=== PATIENT | male | born 1965 | race Caucasian/White ===

== ENCOUNTER 2022-06-21 13:08 | Emergency (ER) | payer OTHER ==
[~2022-06-21 13:08] MED LIST: D5NS ONE
[2022-06-21 13:09] VITALS: BP 128/87
--- NOTE | 2022-06-21 13:30 | NUR ---
MAR UNABLE TO GET AN ANSWER ON PHONE.
--- NOTE | 2022-06-21 13:37 | PCM.EKG ---
[facility] Test Date: 2022-06-21 Test Time: 13:28:22 Pat Name: CAMRYN MORA Department: Room: Gender: M [employer] Intern[employer]: EMMIE : 1965 Requested By: BENITO TAYLOR Order Number: [id number] Reading MD: Measurements Intervals [place] Rate: 113 P: 34 SD: 147 QRS: 64 QRSD: 111 T: 65 QT: 368 QTc: 505 Interpretive Statements Sinus tachycardia Paired ventricular premature complexes Low voltage, extremity and precordial leads Borderline prolonged QT interval No previous ECG available for comparison Please click the below link to view image of tracing.
[2022-06-21 13:45] LABS: BILIRUBIN,URINE 1+ (NEGATIVE)
--- NOTE | 2022-06-21 14:00 | NUR ---
MAR UNABLE TO GET ANSWER FROM [facility] ON PHONE. 2ND ATTEMPT.
--- NOTE | 2022-06-21 14:09 | DIREP ---
PROCEDURE:CT HEAD OR BRAIN W/O CONTRAST COMPARISON:None. INDICATIONS:weak TECHNIQUE:CT images were created without intravenous contrast. FINDINGS: VENTRICLES:The ventricles are normal in size and configuration. CEREBRUM:Normal cerebral morphology with appropriate gonzalez white matter differentiation. CEREBELLUM:Negative. BRAINSTEM:Negative. BASAL CISTERNS:Negative. HEMORRHAGE (Vol L*W*H*.52):No MASS LESION:No ACUTE INFARCT:No SKULL:Normal. SINUSES:Minimal bilateral maxillary sinus mucoperiosteal thickening. OTHER:None CONCLUSION:No acute intracranial process. Dictated by: Armando Rodgers M.D. on 06/21/2022 at 02:07 PM
--- NOTE | 2022-06-21 14:15 | NUR ---
MRA BUTTS RN AT BEDSIDE TO ASSESS PT.
[2022-06-21 14:29] LABS: BASOPHIL % 0.2 % (0.0-0.2); EOSINOPHIL % 0.3 % (0.0-5.0); LYMPHOCYTES # 1.83 10^3/uL1 (1.0-4.8); LYMPHOCYTES % 30.7 % (24.0-44.0); MEAN CORP HGB 34.1 pg (26-34); MONOCYTES # 0.5 10^3/uL (0.3-0.8); MONOCYTES % 7.6 % (5.0-12.0); NEUTROPHIL # 3.6 10^3/uL (1.8-7.7); NEUTROPHILS % 60.7 % (41.0-85.0); PLATELET COUNT 284 10^3/uL (150-400); RED CELL DISTRIBUTION WIDTH 13.6 % (11.5-14.5)
--- NOTE | 2022-06-21 14:30 | NUR ---
PSYCH NURSE EVAL THIS RN AT BEDSIDE TO EVALUATE PATIENT. WHEN ASKED WHAT BROUGHT THE PATIENT TO THE ER, PATIENT STATES, "I DON'T WANT TO LIVE ANY LONGER; I'M SICK ALL THE TIME. I JUST WANT TO ." PATIENT STATES HE HAS BEEN DEALING WITH DEPRESSION AND SUICIDAL THOUGHTS FOR THE LAST YEAR AFTER LOSING 2 VERY CLOSE FRIENDS. PATIENT ALSO STATES THAT HE IS AN ALCOHOLIC. STATES HE DRINKS AT LEAST A LITER OF VODKA A DAY FOR THE LAST 30 YEARS. PATIENT STATES THAT HE HAS BEEN TO REHAB AT LEAST 5 TIMES BUT LIKES TO DRINK AND SOON HE HIS RELEASE FROM REHAB, BEGINS DRINKING IMMEDIATELY. PATIENT WOULD VOLUNTARILY COME TO PSYCH UNIT FOR HELP.
[2022-06-21 14:41] LABS: CARBON DIOXIDE 21.1 mmol/L (20.0-32); GLUCOSE 109 mg/dL (70-110)
--- NOTE | 2022-06-21 14:59 | NUR ---
ALCOHOL LEVEL LAB REPORTS PATIENT'S ALCOHOL LEVEL OF 321, NOTIFIED EDP DR TAYLOR
--- NOTE | 2022-06-21 15:14 | NUR ---
BERTHA MARTINEZ NOTIFIED BERTHA MARTINEZ OF PATIENT. PATIENT DOES NOT MEET MEDICAL CLEARANCE AT THIS TIME.
--- NOTE | 2022-06-21 15:40 | ER.PDOC ---
General Chief Complaint: Medical Clearance Stated Complaint: SI Time seen by MD: 15:00 Source: patient Exam Limitations: no limitations History of Present Illness Initial Comments Suicidal ideation, alcohol abuse, also a right hand weakness of 2 days duration Timing/Duration: yesterday Intent: Suicide Severity: moderate Related to: Sigificant Other Associated Symptoms: Depressed Prior symptoms/Treatment: Similar symptoms previous Allergies: Coded Allergies: No Known Allergies (Unverified , 06/21/22) Past Medical History Medical History: GERD, other Surgical History: appendectomy Social History Alcohol Use: heavy Drug Use: none Reviewed Nursing Reviewed: Vital Signs, Abn. Noted Review of Systems EENTM: no symptoms reported Respiratory: no symptoms reported Cardiovascular: no symptoms reported Gastrointestinal: no symptoms reported Genitourinary: no symptoms reported Musculoskeletal: no symptoms reported, other Skin: no symptoms reported Psychiatric/Neurological: see HPI, depressed, numbness, paresthesia, pre- existing deficit, weakness All Other Systems: Reviewed and Negative Physical Exam General Appearance: No acute distress, Alert EENT: No nystagmus, PERRLA, EOM's intact, NML ENT inspection, Pharynx nml, NML gag reflex Neck: Non-Tender, Full Range of Motion, Supple, Normal Inspection Respiratory: chest non-tender, lungs clear, normal breath sounds, no respiratory distress, no accessory muscle use Cardiovascular: Normal Peripheral Pulses, Regular Rate, Rhythm, No Edema, No Gallop, No JVD, No Murmur Gastrointestinal: Normal Bowel Sounds, No Organomegaly, No Pulsatile Mass, Non Tender, Soft Extremities: Non-Tender, Normal Range of Motion, No Evidence of Trauma, No Edema Neurological/Psychiatric: Calm, 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 Tested, Other Appearance/Memory/Insight: Impaired Insight Behavior/Eye Contact/Speech: Cooperative, Good Eye Contact, Normal Speech Thoughts/Hallucinations: Normal Thought Pattern Skin: Normal Color, Warm/Dry Comments RADIAL N PALSY LUE Results/Orders Results/Orders Orders - PILY LEE MD 0.9 % Sodium Chloride (Ns 1000ml) (06/21/22 19:03) 0.9 % Sodium Chloride (Ns 1000ml) (06/21/22 19:34) Us Gallbladder (06/21/22 20:16) Mag Hydrox/Aluminum Hyd/Simeth (Mylanta) (06/21/22 21:49) Lidocaine Hcl (Lidocaine Hcl Viscous) (06/21/22 21:49) Mag Hydrox/Aluminum Hyd/Simeth (Mylanta) (06/21/22 22:14) Lidocaine Hcl (Lidocaine Hcl Viscous) (06/21/22 22:18) Vital Signs Date Time Temp Pulse Resp B/P (MAP) Pulse Ox O2 Delivery O2 Flow Rate FiO2 06/21/22 13:09 98.7 110 18 128/87 (101) 98 Room Air* 0 21 06/21/22 13:09 98.8 110 18 98 06/21/22 13:09 98.7 110 18 Administered Medications Medications (Trade) Dose Ordered Sig/Daniel Route PRN Reason Start Time Stop Time Status Last Admin Dose Admin Dextrose/Sodium Chloride 1,000 ml @ 0 mls/hr Q0M ONCE IV 06/21/22 16:00 06/21/22 16:01 DC 06/21/22 16:09 1,200 MLS/HR Lidocaine HCl (Lidocaine HCl Viscous) 10 ml STAT STAT MM 06/21/22 21:49 06/21/22 21:50 DC 06/21/22 22:20 10 ML Sodium Chloride 1,000 ml @ 1,200 mls/hr Q50M STAT IV 06/21/22 19:03 06/21/22 19:52 DC 06/21/22 19:05 1,200 MLS/HR Sodium Chloride 1,000 ml @ 1,200 mls/hr Q50M STAT IV 06/21/22 19:34 06/21/22 20:23 DC 06/21/22 20:08 1,200 MLS/HR Laboratory Tests Test 06/21/22 13:24 06/21/22 13:39 06/21/22 13:54 06/21/22 14:35 Serum Alcohol 321 mg/dL (0-50) H Urine Collection Type RANDOM Urine Color MIKE Urine Appearance CLEAR Urine Bilirubin 1+ (NEGATIVE) H Urine Ketones NEGATIVE (NEGATIVE) Urine Specific [place] 1.020 (1.005-1.030) Urine pH 6.0 (4.5-8.0) Urine Protein 1+ (NEGATIVE) H Urine Urobilinogen 2.0 E.U./dL (0.2) Urine Nitrate NEGATIVE (NEGATIVE) Urine Leukocyte Esterase NEGATIVE (NEGATIVE) Urine Glucose (Auto)(UA) NEGATIVE (NEGATIVE) Urine Blood TRACE-INTACT (NEGATIVE) H Urine RBC 0-2 RBC/HPF (NONE SEEN) Urine WBC 0-2 WBC/HPF (0-2) Urine Squamous Epithelial Cells NONE SEEN (<=FEW) Urine Bacteria FEW (NONE SEEN) H Urine Hyaline Casts (NONE SEEN) Urine Opiates Screen NEGATIVE (c/o300ng/mL) Urine Methadone Screen NEGATIVE (c/o300ng/mL) Urine Barbiturates Screen NEGATIVE (c/o200ng/mL) Urine Phencyclidine Screen NEGATIVE (c/o 25ng/mL) Ur Amphetamine/Methamphetamine NEGATIVE (vb3082vs/mL) Urine MDMA Screen (Ecstasy) NEGATIVE (c/o300ng/mL) Urine Benzodiazepines Screen PRESUMPTIVE POSITIVE Urine Cocaine Metabolite Screen NEGATIVE (c/o300ng/mL) Ur Tetrahydrocannabinol (THC) Scrn NEGATIVE (c/o 50ng/mL) White Blood Count 6.0 10^3/uL (4.5-11.0) Red Blood Count 4.22 10^6/uL (4.50-5.90) L Hemoglobin 14.4 g/dL (13.9-16.3) Hematocrit 40.9 % (37.0-53.0) Mean Corpuscular Volume 96.9 fL (78-100) Mean Corpuscular Hemoglobin 34.1 pg (26-34) H Mean Corpuscular Hemoglobin Concent 35.2 g/dL (33-36.5) Red Cell Distribution Width 13.6 % (11.5-14.5) Platelet Count 284 10^3/uL (150-400) Mean Platelet Volume 10.5 fL (7.8-11.0) Neutrophils (%) (Auto) 60.7 % (41.0-85.0) Lymphocytes (%) (Auto) 30.7 % (24.0-44.0) Monocytes (%) (Auto) 7.6 % (5.0-12.0) Neutrophils # (Auto) 3.6 10^3/uL (1.8-7.7) Lymphocytes # (Auto) 1.83 10^3/uL1 (1.0-4.8) Monocytes # (Auto) 0.5 10^3/uL (0.3-0.8) Absolute Immature Granulocyte (auto 0.03 10^3 u/L (0-2) Absolute Eosinophils (auto) 0.0 10^3/uL (0.0-0.2) Immature Granulocytes % 0.50 % (0.00-0.50) Eosinophils % 0.3 % (0.0-5.0) Basophils % 0.2 % (0.0-0.2) Basophils # 0.0 10^3/uL (0.0-0.1) Sodium Level 131 mmol/L (132-145) L Potassium Level 4.3 mmol/L (3.6-5.2) Chloride Level 97.0 mmol/L (96-109) Carbon Dioxide Level 21.1 mmol/L (20.0-32) Anion Gap 17.2 Blood Urea Nitrogen 18 mg/dL (7-18) Creatinine 0.72 mg/dL (0.59-1.40) Estimated GFR () 135.7 (>/=60) Est GFR (CKD-EPI)(Non-Afr [place]) 112.1 (>/=60) BUN/Creatinine Ratio 25.0 Glucose Level 109 mg/dL (70-110) Calcium Level 8.1 mg/dL (8.4-10.5) L Total Bilirubin 5.3 mg/dL (0.2-1.0) H Aspartate Amino Transferase (AST) 302 U/L (0-35) H Alanine Aminotransferase (ALT) 151 U/L (12-78) H Alkaline Phosphatase 683 U/L (50-136) H Total Creatine Kinase 134 U/L (39-308) Total Protein 7.3 g/dL (6.4-8.2) Albumin 3.0 g/dL (3.4-5.0) L Globulin 4.3 Albumin/Globulin Ratio 0.697 Salicylates Level < 2.2 mg/dL (2.8-20.0) L Acetaminophen Level < 2 ug/mL (10-30) L SARS-CoV-2 Antigen (Rapid) NEGATIVE (NEGATIVE) Test 06/21/22 19:09 Serum Alcohol 233 mg/dL (0-50) H Progress Progress Assumed care from Dr. Chase at 7pm US gallbladder: Cholelithiasis with no evidence of biliary ductal dilatation. Gallbladder tenderness and wall thickness raises possibility of cholecystitis. Recommend close correlation with clinical laboratory findings. 2. Hepatic steatosis. Patient not able to be [facility] because of elevation of liver enzymes, total bilirubin and stones in the gallbladder. I spoke with Dr. Brock the general surgeon who told me that based on history of alcohol abuse with intoxication and also depression with suicidal ideation, patient needs to [facility] which is a higher level of care since the facility can take care above his psychiatric illness and medical problem. WBC is normal and no fever making cholecystitis less likely. ER DEPART Departure Time of Disposition: 17:00 Disposition: 02 SHORT TERM [facility]OS[facility] Impression: Primary Impression: Cholelithiases Additional Impressions: Elevated liver enzymes Hyperbilirubinemia Suicidal ideation Alcohol intoxication Condition: Stable Referrals: PCP,UNKNOWN (PCP) PRIMARY CARE PROVIDER Comments Transfer to [facility] ED for Dr. Brock Duration or Time Spent with Pa: 60 min Return to Work/School Can a patient return to work?: No Can a patient return to school: No Problem Qualifiers Primary Impression: Cholelithiases Cholelithiasis location: gallbladder Cholecystitis presence: without cholecystitis Biliary obstruction: without biliary obstruction Qualified Codes: K80.20 - Calculus of gallbladder without cholecystitis without obstruction Additional Impressions: Alcohol intoxication Complication of substance-induced condition: with unspecified complication Qualified Codes: F10.929 - Alcohol use, unspecified with intoxication, unspecified CLAUDIABENITO AG MD Jun 21, 2022 15:40 PILY LEE MD Jun 21, 2022 23:07
[2022-06-21] MEDS ORDERED: D5NS IV ONE (16:00)
[2022-06-21] MEDS ORDERED: D5NS 1,000 ML IV ONE ×2 (16:00)
--- NOTE | 2022-06-21 16:22 | ER.PDOC ---
General Chief Complaint: Medical Clearance Stated Complaint: SI Time seen by MD: 15:33 Source: patient Exam Limitations: no limitations History of Present Illness Timing/Duration: just prior to arrival Severity: mild Related to: Parent Associated Symptoms: Depressed Prior symptoms/Treatment: Similar symptoms previous Allergies: Coded Allergies: No Known Allergies (Unverified , 06/21/22) Past Medical History Medical History: GERD, other Surgical History: appendectomy Social History Alcohol Use: heavy Drug Use: none Reviewed Nursing Reviewed: Vital Signs, Abn. 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 as Tested, Other Appearance/Memory/Insight: Appropriate Appearance, Appropriate Insight, Neat, No Memory Impairment Behavior/Eye Contact/Speech: Cooperative, Good Eye Contact, Normal Speech Thoughts/Hallucinations: Normal Thought Pattern, No Apparent Hallucination Skin: Normal Color, Warm/Dry Comments RADIAL N PALSY LUE Results/Orders Results/Orders Orders - BENITO TAYLOR MD Cbc With Auto Diff (06/21/22 13:32) Comprehensive Metabolic Panel (06/21/22 13:32) Creatine Kinase (06/21/22 13:32) Urinalysis (06/21/22 13:32) Salicylate(Ml) (06/21/22 13:32) Acetaminophen(Ml) (06/21/22 13:32) Alcohol(Ml) (06/21/22 13:32) Ekg-Routine (06/21/22 13:32) Drug Scrn Med W Confirmation (06/21/22 13:32) Ct Head Wo Contrast (06/21/22 13:32) Covid19 Antigen Shelley Nadeen (06/21/22 14:02) Urine Culture (06/21/22 13:28) Dextrose 5 % And 0.9 % Nacl (D5ns) (06/21/22 16:00) Dextrose 5 % And 0.9 % Nacl (D5ns) (06/21/22 16:00) Dextrose 5 % And 0.9 % Nacl (D5ns) (06/21/22 16:00) Alcohol(Ml) (06/21/22 19:00) 0.9 % Sodium Chloride (Ns 1000ml) (06/21/22 19:03) Vital Signs Date Time Temp Pulse Resp B/P (MAP) Pulse Ox O2 Delivery O2 Flow Rate FiO2 06/21/22 13:09 98.7 110 18 128/87 (101) 98 Room Air* 0 21 06/21/22 13:09 98.8 110 18 98 06/21/22 13:09 98.7 110 18 Administered Medications Medications (Trade) Dose Ordered Sig/Daniel Route PRN Reason Start Time Stop Time Status Last Admin Dose Admin Dextrose/Sodium Chloride 1,000 ml @ 0 mls/hr Q0M ONCE IV 06/21/22 16:00 06/21/22 16:01 DC 06/21/22 16:09 1,200 MLS/HR Sodium Chloride 1,000 ml @ 1,200 mls/hr Q50M STAT IV 06/21/22 19:03 06/21/22 19:52 06/21/22 19:05 1,200 MLS/HR Laboratory Tests Test 06/21/22 13:24 06/21/22 13:39 06/21/22 13:54 06/21/22 14:35 Serum Alcohol 321 mg/dL (0-50) H Urine Collection Type RANDOM Urine Color MIKE Urine Appearance CLEAR Urine Bilirubin 1+ (NEGATIVE) H Urine Ketones NEGATIVE (NEGATIVE) Urine Specific [place] 1.020 (1.005-1.030) Urine pH 6.0 (4.5-8.0) Urine Protein 1+ (NEGATIVE) H Urine Urobilinogen 2.0 E.U./dL (0.2) Urine Nitrate NEGATIVE (NEGATIVE) Urine Leukocyte Esterase NEGATIVE (NEGATIVE) Urine Glucose (Auto)(UA) NEGATIVE (NEGATIVE) Urine Blood TRACE-INTACT (NEGATIVE) H Urine RBC 0-2 RBC/HPF (NONE SEEN) Urine WBC 0-2 WBC/HPF (0-2) Urine Squamous Epithelial Cells NONE SEEN (<=FEW) Urine Bacteria FEW (NONE SEEN) H Urine Hyaline Casts (NONE SEEN) Urine Opiates Screen NEGATIVE (c/o300ng/mL) Urine Methadone Screen NEGATIVE (c/o300ng/mL) Urine Barbiturates Screen NEGATIVE (c/o200ng/mL) Urine Phencyclidine Screen NEGATIVE (c/o 25ng/mL) Ur Amphetamine/Methamphetamine NEGATIVE ([id number]/mL) Urine MDMA Screen (Ecstasy) NEGATIVE (c/o300ng/mL) Urine Benzodiazepines Screen PRESUMPTIVE POSITIVE Urine Cocaine Metabolite Screen NEGATIVE (c/o300ng/mL) Ur Tetrahydrocannabinol (THC) Scrn NEGATIVE (c/o 50ng/mL) White Blood Count 6.0 10^3/uL (4.5-11.0) Red Blood Count 4.22 10^6/uL (4.50-5.90) L Hemoglobin 14.4 g/dL (13.9-16.3) Hematocrit 40.9 % (37.0-53.0) Mean Corpuscular Volume 96.9 fL (78-100) Mean Corpuscular Hemoglobin 34.1 pg (26-34) H Mean Corpuscular Hemoglobin Concent 35.2 g/dL (33-36.5) Red Cell Distribution Width 13.6 % (11.5-14.5) Platelet Count 284 10^3/uL (150-400) Mean Platelet Volume 10.5 fL (7.8-11.0) Neutrophils (%) (Auto) 60.7 % (41.0-85.0) Lymphocytes (%) (Auto) 30.7 % (24.0-44.0) Monocytes (%) (Auto) 7.6 % (5.0-12.0) Neutrophils # (Auto) 3.6 10^3/uL (1.8-7.7) Lymphocytes # (Auto) 1.83 10^3/uL1 (1.0-4.8) Monocytes # (Auto) 0.5 10^3/uL (0.3-0.8) Absolute Immature Granulocyte (auto 0.03 10^3 u/L (0-2) Absolute Eosinophils (auto) 0.0 10^3/uL (0.0-0.2) Immature Granulocytes % 0.50 % (0.00-0.50) Eosinophils % 0.3 % (0.0-5.0) Basophils % 0.2 % (0.0-0.2) Basophils # 0.0 10^3/uL (0.0-0.1) Sodium Level 131 mmol/L (132-145) L Potassium Level 4.3 mmol/L (3.6-5.2) Chloride Level 97.0 mmol/L (96-109) Carbon Dioxide Level 21.1 mmol/L (20.0-32) Anion Gap 17.2 Blood Urea Nitrogen 18 mg/dL (7-18) Creatinine 0.72 mg/dL (0.59-1.40) Estimated GFR () 135.7 (>/=60) Est GFR (CKD-EPI)(Non-Afr [place]) 112.1 (>/=60) BUN/Creatinine Ratio 25.0 Glucose Level 109 mg/dL (70-110) Calcium Level 8.1 mg/dL (8.4-10.5) L Total Bilirubin 5.3 mg/dL (0.2-1.0) H Aspartate Amino Transferase (AST) 302 U/L (0-35) H Alanine Aminotransferase (ALT) 151 U/L (12-78) H Alkaline Phosphatase 683 U/L (50-136) H Total Creatine Kinase 134 U/L (39-308) Total Protein 7.3 g/dL (6.4-8.2) Albumin 3.0 g/dL (3.4-5.0) L Globulin 4.3 Albumin/Globulin Ratio 0.697 Salicylates Level < 2.2 mg/dL (2.8-20.0) L Acetaminophen Level < 2 ug/mL (10-30) L SARS-CoV-2 Antigen (Rapid) NEGATIVE (NEGATIVE) Progress Progress TO DR LEE ER DEPART Departure Time of Disposition: 19:11 Disposition: [facility] Impression: Primary Impression: Major depression Condition: Stable Referrals: PCP,UNKNOWN (PCP) PRIMARY CARE PROVIDER Duration or Time Spent with Pa: 12M BENITO TAYLOR MD Jun 21, 2022 16:22
[2022-06-21] MEDS ORDERED: NS 1000ML 1,000 ML IV STA ×2 (19:03→19:34)
[2022-06-21] MEDS ORDERED: NS 1000ML 1,000 ML ONE ×2 (19:03→20:04)
--- NOTE | 2022-06-21 20:18 | NUR ---
US CALLED CALLED [facility] FOR US
[2022-06-21] MEDS ORDERED: MYLANTA PO STA (21:49)
[2022-06-21] MEDS ORDERED: LIDOCAINE HCL VISCOUS MM STA (21:49)
[2022-06-21] MEDS ORDERED: MYLANTA ONE (22:14)
[2022-06-21] MEDS ORDERED: LIDOCAINE HCL VISCOUS ONE (22:18)
--- NOTE | 2022-06-21 22:35 | DIREP ---
PROCEDURE:US ABDOMEN LIMITED(SINGLE ORGAN,QUAD) COMPARISON:None. INDICATIONS:Elevated bilirubin and liver enzymes, RUQ PAIN, PSYCH EVAL, [place] FINDINGS: LIVER:Increased echogenicity and poor sound penetration suggestive of fatty infiltration. No focal mass. BILIARY:Multiple small gallstones and sludge identified in the gallbladder lumen. Gallbladder wall is thickened, measures 4.7 mm. Common bile duct is normal, and measures 5.7 mm. There is gallbladder tenderness to ultrasound transducer palpation (positive ultrasound Shields sign). No pericholecystic fluid. PANCREAS:Pancreatic head and body appear normal. Pancreatic tail not well demonstrated. RIGHT KIDNEY:No hydronephrosis. 7.8 x 5.5 x 12.6 cm. OTHER:Negative. No ascites is identified. CONCLUSION: 1. Cholelithiasis with no evidence of biliary ductal dilatation. Gallbladder tenderness and wall thickness raises possibility of cholecystitis. Recommend close correlation with clinical laboratory findings. 2. Hepatic steatosis. Dictated by: Hammad Matos M.D. on 06/21/2022 at 10:21 PM
--- NOTE | 2022-06-21 23:20 | NUR ---
DISPATCH CALLED CALLED [facility]PATCH FOR TRANSPORT TO [facility]
--- NOTE | 2022-06-21 23:49 | NUR ---
CALLED REPORT TO [facility] ER CHARGE NURSE AKHIL KENNEDY, INFORMED OF PT'S SUICIDE IDIATION AND 1:1 STATUS AT THIS FACILITY, VOICED UNDERSTANDING
== END 2022-06-21 23:30 | disposition short-term general hospital (02) ==
LOC: EDBD 13:08 → ER 13:08
DX: F32.9 Major depressive disorder, single episode, unspecified (principal); Z20.822 Contact with and (suspected) exposure to COVID-19; K21.9 Gastro-esophageal reflux disease without esophagitis; R11.2 Nausea with vomiting, unspecified; R45.851 Suicidal ideations; Z90.49 Acquired absence of other specified parts of digestive tract
CPT/HCPCS: 96361; 96360; 99285; 87086; 70450; 76705; 80346; 87426; 80053; 85025; 80307; 80299 ×2; 82077 ×2; 81001; 82550; 93005; J7030 ×2; J3490